=== PATIENT | male | born 1935 | race Caucasian/White ===

== ENCOUNTER → 2018-12-29 | Outpatient (CLI) | payer MEDICARE ==
--- NOTE | 2018-12-29 17:53 | Diagnostic Imaging Report ---
EXAMINATION: PA and lateral views of the chest. COMPARISON: None CLINICAL HISTORY: Shortness of breath DISCUSSION: Lines/tubes: Dual-lead pacemaker. Lungs: The lungs are well inflated and clear. No pneumonia or pulmonary edema. Pleura: No pleural effusion or pneumothorax. Heart and mediastinum: The cardiomediastinal silhouette is normal. Bones and soft tissues: No acute bony abnormalities. IMPRESSION: No acute cardiopulmonary abnormalities. Signed by: Dr. Saud Finley M.D. on 12/29/2018 5:50 PM
== END ==
LOC: RAD 16:46
PROVIDERS: ATTEND Internal Medicine
DX: R06.02 Shortness of breath (principal)
CPT/HCPCS: 71046

== ENCOUNTER → 2019-04-22 | Day surgery (SDC) | payer MEDICARE ==
[2019-04-20 13:45] LABS: BASOPHILS % 0.4 % (0.0-1.0); EOSINOPHILS # (AUTO) 0.1 (0.0-0.4); EOSINOPHILS % 1.3 % (0.0-6.0); HEMATOCRIT 42.5 % (38.2-49.6); HEMOGLOBIN 15.1 g/dL (14.0-18.0); LYMPHOCYTES # (AUTO) 0.9 (1.0-3.2); MEAN CORPUSCULAR HEMOGLOBIN 31.3 pg (28-32); MEAN CORPUSCULAR HGB CONC 35.5 g/dL (31-35); MONOCYTES # (AUTO) 0.5 (0.2-0.8); NEUTROPHILS % 72.7 % (38.7-80.0); PLATELET COUNT 190 x10e3/uL (140-360); RED BLOOD COUNT 4.83 x10e6/uL (4.3-5.7); RED CELL DISTRIBUTION WIDTH 12.8 % (11.7-14.4)
--- NOTE | 2019-04-21 07:13 | History and Physical ---
Patient of Dr. Kitty Thornton admitted for diagnostic bronchoscopy on 04/22/2019 1 p.m. HISTORY OF PRESENT ILLNESS: [place] 84-year-old gentleman, admitted for persistent left upper lobe infiltrate. History of productive cough recently, which has resolved. History of smoking, quit over 50 years ago, but smoked up to 2 packs a day. History of severe parkinsonism. Normal spirometry. He has had right lower lobe infiltrate in the past, but this infiltrate is in the left upper lobe is new and has persisted despite courses of amoxicillin. PHYSICAL EXAMINATION: VITAL SIGNS: Temperature 98, blood pressure 90/50, and O2 saturation 91% at rest. GENERAL: Well-developed white male, in no acute distress, looking his stated age, somewhat stiff, noted moderate weight loss. LUNGS: Essentially clear. HEART: Regular rhythm. ABDOMEN: Nontender. EXTREMITIES: Nonedematous scarring in the left knee. MEDICATIONS: Include albuterol, Eliquis, Sinemet, metformin, Prilosec, Pravachol, Flomax, TobraDex, Trelegy and Ventolin. FAMILY HISTORY: Positive for arthritis. Has had joint replacement with left total knee, dyspnea climbing 3 flights of stairs. Has history of old stroke. IMPRESSION: History of old stroke without deficit, parkinsonism, diabetes mellitus. The patient has been asked to hold his Eliquis the day of surgery and he was admitted for bronchoscopy to rule out occult endobronchial lesion. Cecilio Chavez MD DS/MODL /[id number]
[~2019-04-22] MED LIST: CALCIUM CARBON500 MG PO; DEXAMETHASONE SOD PHOS INJ 4 MG/ML VIAL ONE; ELIQUIS PO; EPHEDRINE SULFATE INJ 50 MG/10 ML SYR ONE; FISH OIL 1,0001 EAC2 PO; FLOMAX0.4 MG PO; GARLIC1000 MG PO; LIDOCAINE HCL 2% LOCAL INJ 5 ML SDV VIAL INJ ONE; LIDOCAINE HCL 4% 50 ML BTL ONE; LORATADINE10 MG PO; METFORMIN HCL500 MG PO; METOPROLOL SUCC25 MG PO; MIDODRINE HCL2.5 MG PO; MUCINEX DM ER1 EACH PO; ONDANSETRON HCL INJ 2MG/ML 2ML 2 MG/ML VIAL ONE; PRAVASTATIN SOD20 MG PO; PROPOFOL IV EMULSION 10 MG/ML 20 ML VIAL ONE; SEVOFLURANE INHAL SOLN 250 ML PEN BTL ONE; SINEMET 25-1001 EACH PO; ULTRAM50 MG PO; VENTOLIN HFA18 GM INH; VITAMIN D31000 UNIT PO
--- OUTSIDE RECORDS SUMMARY | 2019-04-22 12:46 | XMS REPORT ---
Author Author [facility] Address Unknown Phone Unavailable Care Team Providers Care Cycle Repairer Name Role Phone Argenis CARRERA Unavailable Unavailable Problems This patient has no known problems. Allergies, Adverse Reactions, Alerts This patient has no known allergies or adverse reactions. Medications This patient has no known medications. Results Test Description Test Time Test Comments Text Results Atomic Results Result Comments CHEST 2 VIEWS 2018-12-29 17:49:00 [place] [id number] Patient Name: YONY BEE MR #: [id number] : 1935 Age/Sex: 83/M Req #: [id number] Adm Physician: Ordered by: ASHA CARRERA MD Report #: [id number] Location: [facility] Room/Bed: Procedure: [id number] DX/CHEST 2 VIEWS Exam Date: Exam Time: REPORT STATUS: Signed EXAMINATION: PA and lateral views of the chest. COMPARISON: None CLINICAL HISTORY: Shortness of breath DISCUSSION: Lines/tubes: Dual-lead pacemaker. Lungs: The lungs are well inflated and clear. No pneumonia or pulmonary edema. Pleura: No pleural effusion or pneumothorax. Heart and mediastinum: The cardiomediastinal silhouette is normal. Bones and soft tissues: No acute bony abnormalities. IMPRESSION: No acute cardiopulmonary abnormalities. Signed by: Dr. Tangela Ruggiero M.D. on 12/29/2018 5:50 PM Dictated By: TANGELA RUGGIERO MD 51 Transcribed By: SHENA on 12/29/181749 COPY TO: ASHA CARRERA MD
[2019-04-22 15:30] VITALS: BP 165/87
[2019-04-22 18:34] LABS: BODY FLUID APPEARANCE SL.CLOUDY; BODY FLUID COLOR RED; BODY FLUID TYPE RUL BAL
[2019-04-22 18:35] LABS: RBC,BODY FLUID 4 cells/uL; WBC,BODY FLUID 32 cells/uL
[2019-04-22 18:51] LABS: BODY FLUID APPEARANCE CLEAR; BODY FLUID COLOR COLORLESS; BODY FLUID TYPE LUL BAL; RBC,BODY FLUID 12 cells/uL; WBC,BODY FLUID 47 cells/uL
[2019-04-22 21:16] LABS: LYMPHOCYTES,BODY FLUID 60 %; MONO/MACROPHG,BODY FLUID 6 %; NEUTROPHILS,BODY FLUID 8 %; OTHER CELLS,BODY FLUID 26 %
[2019-04-22 21:18] LABS: LYMPHOCYTES,BODY FLUID 74 %; MONO/MACROPHG,BODY FLUID 2 %; NEUTROPHILS,BODY FLUID 4 %; OTHER CELLS,BODY FLUID 20 %
--- NOTE | 2019-04-22 21:52 | Operative Report ---
DATE OF PROCEDURE: SURGEON: Cecilio Chavez MD The patient of Dr. Deborah Thornton. The patient was admitted for diagnostic bronchoscopy. The patient has persistent left upper lobe pulmonary infiltrate. Procedure was performed to rule out occult endobronchial lesion and for bacteriologic studies. The patient was bronchoscoped under general anesthetic. A #5 LMA was employed. There were normal vocal cords. Mild laryngitis, mild tracheobronchitis. Thick secretions were noted and these were cleared. The secretion could not be suctioned through the endoscope. The scope had to be withdrawn to allow passage of the thick secretions. He was then re-bronchoscoped. There was evidence of moderate tracheobronchitis. Clear tenacious opalescent secretions. No endobronchial obstruction was observed. Lavage was performed under fluoroscopic control of the apical segment of left upper lobe. The patient tolerated procedure well, was taken to recovery area. He was instructed to resume his Xarelto in the evening. MD FRANCISCO Vee/DEVANTEL /[id number]
== END | disposition home or self-care (01) ==
LOC: ENDO 12:36
PROVIDERS: ATTEND Internal Medicine Pulmonary Disease
DX: R91.8 Other nonspecific abnormal finding of lung field (principal); J04.0 Acute laryngitis; J44.9 Chronic obstructive pulmonary disease, unspecified; G20 Parkinson's disease; E11.9 Type 2 diabetes mellitus without complications; N40.0 Benign prostatic hyperplasia without lower urinary tract symptoms; I44.0 Atrioventricular block, first degree; Z91.041 Radiographic dye allergy status; Z88.2 Allergy status to sulfonamides; Z01.810 Encounter for preprocedural cardiovascular examination; Z01.812 Encounter for preprocedural laboratory examination; Z79.84 Long term (current) use of oral hypoglycemic drugs; Z79.02 Long term (current) use of antithrombotics/antiplatelets; Z95.0 Presence of cardiac pacemaker; Z86.73 Personal history of transient ischemic attack (TIA), and cerebral infarction without residual deficits; Z87.891 Personal history of nicotine dependence
CPT/HCPCS: 31622; 36415 ×2; 76000; 82948; 85025; 87102; 87116; 87186; 87205; 87206 ×2; 87335; 88112; 88305; 89051; 93005; J1100; J2001; J2405; J2704